=== PATIENT | female | born 1965 | race Caucasian/White ===

== ENCOUNTER 2020-08-06 20:07 | Emergency (ER) | payer OTHER, SELFPAY ==
[2020-08-06 20:18] VITALS: BP 160/90; PULSE 77; PULSE 95; RESP 16; TEMP 36.7; O2SAT 100; O2SAT 95; BMI 26.6
--- NOTE | 2020-08-06 21:02 | CT_ITS ---
EXAMINATION: CT ABDOMEN AND PELVIS WITHOUT CONTRAST CLINICAL INFORMATION: Lower abdominal pain COMPARISON: 11/28/2018 TECHNIQUE: Multidetector volumetric imaging was performed from the superior aspect of the liver through the pubic symphysis. Sagittal and coronal reformatted images were obtained on the technologist's workstation. This CT examination was performed using dose optimization techniques as appropriate, variously including the following: *Automated exposure control *Adjustment of mA and/or kV according to patient size (this includes techniques or standardized protocols for targeted exams where dose is matched to indication/reason for exam; i.e. extremities or head) *Use of iterative reconstruction technique DLP: 592 mGy-cm FINDINGS: LUNG BASES: The visualized lung bases are unremarkable. LIVER, GALLBLADDER, AND BILIARY TREE: The liver is normal in size, shape, and attenuation. No focal hepatic lesion or biliary ductal dilatation is present. The gallbladder is unremarkable with no evidence of radiopaque gallstones, gallbladder wall thickening, or obvious pericholecystic inflammatory changes. PANCREAS: Pancreas is not adequately evaluated. Densely packed structures. Unopacified bowel. No obvious free fluid in the region SPLEEN: Unremarkable. ADRENAL GLANDS: Unremarkable. KIDNEYS AND URETERS: The kidneys are normal in size, shape, and attenuation. No hydronephrosis, hydroureter, or calculi seen. No perinephric stranding. BLADDER: Unremarkable. GASTROINTESTINAL TRACT: The small and large bowel are unremarkable. The appendix is unremarkable. ABDOMINAL WALL: No significant hernia is appreciated. LYMPH NODES: Normal. VASCULAR: Unremarkable. PELVIC VISCERA: Unremarkable. OSSEOUS STRUCTURES: Unremarkable. CT/CT abdomen pelvis wo con IMPRESSION: No convincing evidence for an acute process. Exam is limited from lack of intravenous and oral contrast. The bowel pattern is nonobstructing. There is no free fluid.
--- NOTE | 2020-08-06 21:05 | ED.ABDPAIN ---
HPI - Abdominal Pain General Chief Complaint: Abdominal Pain Stated Complaint: abd pain Time Seen by Provider: 08/06/20 21:02 Source: patient and EMS Mode of arrival: EMS Limitations: no limitations History of Present Illness HPI narrative: 54 years old female came in by EMS, patient was eating at a restaurant after she ate fried clam felt sudden onset of lower severe abdominal pain, described the pain as severe and constant, crampy in nature, diffuse to the whole abdomen, associated with nausea and vomiting, no diarrhea no bowel movement desire, patient was given pain medication by EMS that alleviate the pain, other family member ate from same food with no symptoms. Related Data Allergies Allergy/AdvReac Type Severity Reaction Status Date / Time Penicillins [PCN] Allergy Unknown RASH Unverified 04/01/20 19:40 Sulfa (Sulfonamide Allergy Unknown INVOLUNTARY Unverified 04/01/20 19:40 Antibiotics) SPASMS [SULFA (SULFONAMIDE ANTIBIOTICS)] Review of Systems Review of Systems All other systems are reviewed and are negative Constitutional: Reports as per HPI and Reports no additional constitutional complaints Eyes: Reports as per HPI and Reports no additional eye complaints Reports system reviewed and no additional complaints, except as documented Cardiovascular: Reports as per HPI and Reports no additional cardiovascular complaints Respiratory: Reports as per HPI and Reports no additional respiratory complaints Gastrointestinal: Reports as per HPI and Reports no additional gastrointestinal complaints Genitourinary: Reports no additional female genitourinary complaints Musculoskeletal: Reports no additional musculoskeletal complaints Skin/Breast: Reports system reviewed and no additional complaints, except as docu Psychiatric: Reports no additional psychiatric complaints Endocrine: Reports no additional endocrine complaints Hematologic/Lymphatic: Reports no additional hematologic/lymphatic complaints Allergic/Immunologic: Reports no additional allergic/immunologic complaints Reports system reviewed and no additional complaints, except as documented and Reports Abnormal speech present Physical Exam Vital Signs: Vital Signs: Last Vital Signs Temp 98.0 F 08/06/20 20:18 Pulse 77 08/07/20 00:00 Resp 18 08/07/20 00:00 BP 128/77 08/07/20 00:00 Pulse Ox 98 08/07/20 00:00 Body Mass Index 26.6 Vital signs have been reviewed as normal and appeared to be correct. Blood pressure normal. Heart rate normal. Respiration rate normal. Temperature normal. Oxygen saturation normal. Appearance: Alert. Oriented X3. No acute distress. Head: Normal external exam. Normocephalic. Atraumatic. No Rain signs noted. No raccoon eyes noted Eyes: PERRLA. EOMI. Conjunctiva and sclera normal. Eyelids normal. ENT: EAC normal. TM's Normal. Pharynx normal. Uvula midline. Moist mucous membranes. No trismus noted. No drooling noted. No muffled voice noted. Neck: Normal inspection. Neck supple. FROM. No adenopathy. Thyroid Normal. No meningeal signs. No neck mass noted. CVS: Normal heart rate and rhythm. Heart sound normal. No murmurs noted. Pulses normal throughout. Respiratory: No respiratory distress. Painless inspiration. Breath sounds normal. No wheezes/rales/rhonchi noted. Chest nontender. No accessory muscle usage noted or decreased air movement noted. Abdomen: Soft, tenderness to bilateral lower abdomen more pronounced on the left lower quadrant area, no rebound, no guarding. Bowel sounds normal in all 4 quadrants. No distention noted. No organomegaly noted. No visible injury noted. Back: No CVA tenderness. Full range of motion noted. Skin: Skin warm and dry. Normal skin color. Normal skin turgor. No rashes/lesions/lacerations noted. Extremities: No lower extremity edema. Extremities exhibit normal range of motion. Extremities nontender. Neuro: Oriented X 3. No motor deficit. No sensory deficit. Reflexes normal. MDM - Abdominal Pain MDM Narrative Medical decision making narrative: Assessment and plan. 54-year-old female came in with a sudden onset of lower abdominal pain after eating outside, nausea, and vomiting. Patient emergency department received IV fluids and pain medication and antinausea medication, patient feels better. Labs were unremarkable no leukocytosis. CT of the abdomen pelvis done without contrast but was not significant for acute intra abdominal pathology. Patient was reassessed and re-examined abdomen is soft nontender. Patient decline symptoms for UTI no dysuria, no urinary frequency. Lab Data Attestation: I reviewed the patient's lab results. Result diagrams: 08/06/20 23:42 08/06/20 23:42 Labs: Lab Results 08/06/20 08/06/20 08/06/20 Range/Units 22:28 23:42 23:42 WBC 5.8 (4.8-10.8) X10*3/uL RBC 4.29 (4.20-5.50) X10*6/uL Hgb 13.1 (12.0-16.0) g/dl Hct 39.1 (37-47) % MCV 91.1 (80-98) fL MCH 30.5 (27.0-33.0) pg MCHC 33.5 (31.0-35.0) g/dl RDW 12.4 (11.0-16.0) % Plt Count 254 (160-400) X10*3/uL MPV 9.3 L (9.4-12.3) fL Immature Gran % (Auto) 0.2 (0.0-0.4) % Neut % (Auto) 53.5 (45-73) % Lymph % (Auto) 35.2 (20-40) % [place] % (Auto) 8.5 (2-11) % Eos % (Auto) 1.9 (0-4) % Baso % (Auto) 0.7 (0-2) % Lymph # (Auto) 2.0 (1.2-4.9) X10*3/uL [place] # (Auto) 0.5 (0.1-1.2) X10*3/uL Eos # (Auto) 0.1 (0.0-0.4) X10*3/uL Baso # (Auto) 0.0 (0.0-0.2) X10*3/uL Abs Immat Gran (auto) 0.01 (0.00-0.03) X10*3/uL Absolute Neuts (auto) 3.1 (2.0-8.3) X10*3/uL Absolute Nucleated RBC 0.000 (0.0-0.012) X10*3/uL Nucleated RBC % (auto) 0.0 (0.0-0.2) /100WBC Sodium 142 (135-145) mmol/L Potassium 4.0 (3.3-5.1) mmol/l Chloride 106 (96-108) mmol/L Carbon Dioxide 28 (22-29) mmol/L Anion Gap 12 (12-20) BUN 10 (9-16) mg/dL Creatinine 0.78 (0.5-1.4) mg/dL Estim Creat Clear Calc 89.3 Estimated GFR > 60 Random Glucose 95 (60-115) mg/dL Calcium 8.5 (8.4-10.2) mg/dL Total Bilirubin 0.3 (0.0-1.0) mg/dL Direct Bilirubin < 0.2 (0.0-0.5) mg/dL AST 15 (5-31) U/L ALT 9 (0-31) U/L Alkaline Phosphatase 68 (39-117) U/L Total Protein 6.5 (6.5-8.0) g/dL Albumin 4.2 (3.5-5.0) g/dL Lipase 56 (8-78) U/L Urine Color YELLOW Urine Appearance CLEAR Urine pH 5.5 (5.0-8.0) Ur Specific [place] 1.010 (1.005-1.025) Urine Protein NEG (NEG-TRACE) MG/DL Urine Glucose (UA) NEG (NEG) MG/DL Urine Ketones NEG (NEG) MG/DL Urine Blood NEG (NEG) Urine Nitrite POS H (NEG) Ur Leukocyte Esterase TRACE H (NEG) Urine RBC 0 (0) /HPF Urine WBC 0-2 (0-4) /HPF Ur Squamous Epith Cells 1+ /LPF Urine Bacteria 4+ /LPF Urine Test NEGATIVE (NEGATIVE) COVID-19 (MISSY) (Negative) COVID-19 Clin Com 08/07/20 Range/Units 01:04 WBC (4.8-10.8) X10*3/uL RBC (4.20-5.50) X10*6/uL Hgb (12.0-16.0) g/dl Hct (37-47) % MCV (80-98) fL MCH (27.0-33.0) pg MCHC (31.0-35.0) g/dl RDW (11.0-16.0) % Plt Count (160-400) X10*3/uL MPV (9.4-12.3) fL Immature Gran % (Auto) (0.0-0.4) % Neut % (Auto) (45-73) % Lymph % (Auto) (20-40) % [place] % (Auto) (2-11) % Eos % (Auto) (0-4) % Baso % (Auto) (0-2) % Lymph # (Auto) (1.2-4.9) X10*3/uL [place] # (Auto) (0.1-1.2) X10*3/uL Eos # (Auto) (0.0-0.4) X10*3/uL Baso # (Auto) (0.0-0.2) X10*3/uL Abs Immat Gran (auto) (0.00-0.03) X10*3/uL Absolute Neuts (auto) (2.0-8.3) X10*3/uL Absolute Nucleated RBC (0.0-0.012) X10*3/uL Nucleated RBC % (auto) (0.0-0.2) /100WBC Sodium (135-145) mmol/L Potassium (3.3-5.1) mmol/l Chloride (96-108) mmol/L Carbon Dioxide (22-29) mmol/L Anion Gap (12-20) BUN (9-16) mg/dL Creatinine (0.5-1.4) mg/dL Estim Creat Clear Calc Estimated GFR Random Glucose (60-115) mg/dL Calcium (8.4-10.2) mg/dL Total Bilirubin (0.0-1.0) mg/dL Direct Bilirubin (0.0-0.5) mg/dL AST (5-31) U/L ALT (0-31) U/L Alkaline Phosphatase (39-117) U/L Total Protein (6.5-8.0) g/dL Albumin (3.5-5.0) g/dL Lipase (8-78) U/L Urine Color Urine Appearance Urine pH (5.0-8.0) Ur Specific [place] (1.005-1.025) Urine Protein (NEG-TRACE) MG/DL Urine Glucose (UA) (NEG) MG/DL Urine Ketones (NEG) MG/DL Urine Blood (NEG) Urine Nitrite (NEG) Ur Leukocyte Esterase (NEG) Urine RBC (0) /HPF Urine WBC (0-4) /HPF Ur Squamous Epith Cells /LPF Urine Bacteria /LPF Urine Test (NEGATIVE) COVID-19 (MISSY) Negative (Negative) COVID-19 Clin Com See Note Imaging Data CT scan - abdomen: Radiologist's impression: No convincing evidence for an acute process. Exam is limited from lack of intravenous and oral contrast. The bowel pattern is nonobstructing. There is no free fluid. Discharge Plan Discharge Clinical Impression: Abdominal pain Qualifiers: Abdominal location: generalized Qualified Code(s): R10.84 - Generalized abdominal pain Patient Disposition: Home, Self-Care Instructions: Abdominal Pain (ED) Additional Instructions: Seek immediate medical attention faint is worsening or new symptoms develop like nausea, vomiting, or fever. Referrals: Physician,None [Primary Care Provider] - 2 days Interventions: ED Discharge Assessment Last Done: 08/07/20 00:58 Discharge Date/Time: 08/07/20 01:07 [facility], [facility] Social History Social History Smoking Status: Never smoker Use of substances other than those prescribed or required for medical reasons: No Advance Directives: No Advance Directives Information Provided: Yes
[2020-08-06] MEDS: 0.9 % Sodium Chloride 1,000 ML 999 ML IVCONT (22:10)
[2020-08-06] MEDS: Morphine Sulfate 2 MG/ML CARTRIDGE 1 MG IVPUSH (22:10)
[2020-08-06] MEDS: ondansetron HCL 4 MG/2 ML VIAL IVPUSH (22:11)
[2020-08-06 22:37] VITALS: BP 131/76; PULSE 70; RESP 16; O2SAT 100
[2020-08-06 22:37] LABS: Glucose Urine UA NEG (NEG); Leukocyte Esterase Urine TRACE (NEG); Nitrite Urine POS (NEG); PH 5.5 (5.0-8.0); UACC Culture Trigger YES; Urine Blood NEG (NEG); Urine Ketones NEG (NEG); Urine Protein NEG (NEG-TRACE)
[2020-08-06 22:38] LABS: Appearance Urine CLEAR; Color Urine YELLOW
[2020-08-06 22:40] LABS: UPreg QC Valid YES; Urine Pregnancy NEGATIVE (NEGATIVE)
[2020-08-06 22:49] LABS: RBC Urine 0 /HPF (0); Squamous Epithelial Cell Urine 1+ /LPF; WBC Urine 0-2 /HPF (0-4)
[2020-08-06 22:50] LABS: Bacteria Urine 4+ /LPF
--- NOTE | 2020-08-06 22:53 | PC.NURSE ---
pt refusing labs at this time, pt wants more ivf to infuse.
[2020-08-06 22:56] VITALS: BP 129/76; PULSE 77; RESP 18; O2SAT 100
--- NOTE | 2020-08-06 23:41 | PC.NURSE ---
lab is present to draw the pt blood.
[2020-08-06 23:53] LABS: MANUAL DIFF FLAG NO
[2020-08-06 23:56] LABS: Basophils Percent Auto 0.7 % (0-2); Eosinophils Absolute Auto 0.1 X10*3/uL (0.0-0.4); Eosinophils Percent Auto 1.9 % (0-4); Hematocrit 39.1 % (37-47); Hemoglobin 13.1 g/dl (12.0-16.0); Imm Gran Abs Auto 0.01 X10*3/uL (0.00-0.03); Imm Gran Pct Auto 0.2 % (0.0-0.4); Lymphocytes Percent Auto 35.2 % (20-40); Mean Corpuscular HGB Conc 33.5 g/dl (31.0-35.0); Mean Corpuscular Hemoglobin 30.5 pg (27.0-33.0); Mean Corpuscular Volume 91.1 fL (80-98); Mean Platelet Volume 9.3 fL (9.4-12.3); Monocytes Absolute Auto 0.5 X10*3/uL (0.1-1.2); Monocytes Percent Auto 8.5 % (2-11); Neutrophils Absolute Auto 3.1 X10*3/uL (2.0-8.3); Neutrophils Percent Auto 53.5 % (45-73); Platelet Count 254 X10*3/uL (160-400); Red Blood Count 4.29 X10*6/uL (4.20-5.50); Red Cell Distribution Width 12.4 % (11.0-16.0); White Blood Count 5.8 X10*3/uL (4.8-10.8)
[2020-08-07] VITALS: BP 128/77; PULSE 77; RESP 18; O2SAT 98
[2020-08-07 00:40] LABS: Alanine Aminotransferase 9 U/L (0-31); Albumin Level 4.2 g/dL (3.5-5.0); Alkaline Phosphatase 68 U/L (39-117); Anion Gap 12 (12-20); Aspartate Amino Transferase 15 U/L (5-31); Bilirubin Direct < 0.2 mg/dL (0.0-0.5); Bilirubin Total 0.3 mg/dL (0.0-1.0); Blood Urea Nitrogen 10 mg/dL (9-16); Calcium 8.5 mg/dL (8.4-10.2); Carbon Dioxide 28 mmol/L (22-29); Chloride 106 mmol/L (96-108); Creatinine Clr Calc Pharmacy 89.3; Estimated Glomerular Filt Rate > 60; Glucose Random 95 mg/dL (60-115); Lipase 56 U/L (8-78); Sodium 142 mmol/L (135-145); Total Protein 6.5 g/dL (6.5-8.0)
[2020-08-07 01:23] LABS: COVID-19 Test Negative (Negative); IDNOW Serial# 9DD0AD1C
== END 2020-08-07 01:07 | disposition home or self-care (01) ==
PROVIDERS: Emergency Provider Emergency Medicine
DX: N39.0 Urinary tract infection, site not specified (principal); R10.84 Generalized abdominal pain; Z20.822 Contact with and (suspected) exposure to COVID-19
CPT/HCPCS: 36415; 74176; 80048; 80076; 81001; 81003; 81025; 83690; 85025; 87086; 87088; 87186; 87635; 96361; 96374; 96375; 99284; J2270; J2405

== ENCOUNTER 2022-01-24 14:33 | Outpatient (REF) | payer OTHER, SELFPAY ==
--- NOTE | ~2022-01-24 | US_ITS ---
EXAMINATION: US SCREENING ULTRASOUND BREAST, BILATERAL CLINICAL INFORMATION: 56-year-old declines mammography. Request bilateral breast ultrasound. COMPARISON: None. TECHNIQUE: Ultrasound is performed using grayscale imaging and color Doppler. Imaging is performed to include the four quadrants and retroareolar region. Both breasts are imaged. FINDINGS: Right breast: There is no suspicious finding by ultrasound. There is no cystic or solid mass or focal architectural abnormality. Left breast: There is no suspicious finding by ultrasound. There is no cystic or solid mass or focal architectural abnormality. US/US breast LT complete IMPRESSION: No suspicious findings on bilateral breast ultrasound. ASSESSMENT: BI-RADS 1: Negative RECOMMENDATION: 1. Routine annual mammography screening. 2. Additional adjunct breast MRI may be considered depending on clinical risk factors. This patient's information was entered into a reminder system with a target due date for their next mammogram.
--- NOTE | ~2022-01-24 | US_ITS ---
EXAMINATION: US SCREENING ULTRASOUND BREAST, BILATERAL CLINICAL INFORMATION: 56-year-old declines mammography. Request bilateral breast ultrasound. COMPARISON: None. TECHNIQUE: Ultrasound is performed using grayscale imaging and color Doppler. Imaging is performed to include the four quadrants and retroareolar region. Both breasts are imaged. FINDINGS: Right breast: There is no suspicious finding by ultrasound. There is no cystic or solid mass or focal architectural abnormality. Left breast: There is no suspicious finding by ultrasound. There is no cystic or solid mass or focal architectural abnormality. US/US breast RT complete IMPRESSION: No suspicious findings on bilateral breast ultrasound. ASSESSMENT: BI-RADS 1: Negative RECOMMENDATION: 1. Routine annual mammography screening. 2. Additional adjunct breast MRI may be considered depending on clinical risk factors. This patient's information was entered into a reminder system with a target due date for their next mammogram.
== END 2022-01-24 14:34 | disposition home or self-care (01) ==
LOC: HO.MAMMO 14:33
PROVIDERS: Visit Provider Obstetrics & Gynecology Reproductive Endocrinology
DX: Z12.39 Encounter for other screening for malignant neoplasm of breast (principal); N95.2 Postmenopausal atrophic vaginitis
CPT/HCPCS: 76641

== ENCOUNTER 2023-07-13 13:06 | Outpatient (REF) | payer BC, SELFPAY | END 2023-07-13 13:07 | disposition home or self-care (01) | LOC: HO.MAMMO 13:06 | PROVIDERS: PCP Nurse Practitioner Family; Visit Provider Nurse Practitioner Family | DX: Z12.31 Encounter for screening mammogram for malignant neoplasm of breast (principal) | CPT/HCPCS: 76641 ==

== ENCOUNTER → 2023-07-13 13:30 | Outpatient (BNV) | payer BC, SELFPAY | PROVIDERS: PCP Nurse Practitioner Family; Visit Provider Radiology Diagnostic Radiology | DX: Z12.31 Encounter for screening mammogram for malignant neoplasm of breast (principal) | CPT/HCPCS: 76641 ==

== ENCOUNTER → 2025-02-24 11:05 | Outpatient (BNVA) | payer OTHER, SELFPAY | PROVIDERS: Visit Provider Physician Assistant Medical | DX: S93.401A Sprain of unspecified ligament of right ankle, initial encounter (principal); S50.02XA Contusion of left elbow, initial encounter; S80.02XA Contusion of left knee, initial encounter; W18.09XA Striking against other object with subsequent fall, initial encounter | CPT/HCPCS: 73610; 99203 ==

== ENCOUNTER → 2025-02-26 11:23 | Outpatient (BNVA) | payer OTHER, SELFPAY | PROVIDERS: Visit Provider Physician Assistant Medical | DX: S93.401A Sprain of unspecified ligament of right ankle, initial encounter (principal); W18.09XA Striking against other object with subsequent fall, initial encounter | CPT/HCPCS: 99213 ==

== ENCOUNTER → 2025-03-12 15:16 | Outpatient (BNVA) | payer OTHER, SELFPAY | PROVIDERS: Visit Provider Physician Assistant Medical | DX: S93.401A Sprain of unspecified ligament of right ankle, initial encounter (principal); S86.011A Strain of right Achilles tendon, initial encounter; W18.09XA Striking against other object with subsequent fall, initial encounter | CPT/HCPCS: 99213 ==

== ENCOUNTER 2025-03-22 14:19 | Outpatient (REF) | payer OTHER, SELFPAY ==
--- OUTSIDE RECORDS SUMMARY | 2024-04-24 09:20 | XMS_ITS ---
Author Organization [employer] [facility] Address [address] [place] [address] Care Team Providers Care Director Of Event Marketing Name Role Phone Donna Stuart Unavailable [phone] REASON FOR VISIT ANNUAL W/MENOPAUSE ISSUES Encounters Encounter Location Date Provider Diagnosis [facility] [employer] [facility] [address] [place] [address] 04/24/2024 Donna Stuart Plan Of Treatment Next Appt Details Provider Name:Donna borges, 03/19/2026 03:00:00 PM, [address], [address], [place], [address], Progress Notes * RETA ESQUIVELOB:1965 ( 59 yo F)Acc No.[id number]:04/24/2024 Progress Note Patient: LIDIA SMITH Appointment Provider: Johnathan Stuart M.D. :1965 A ge:58 Y S ex:Female Date:04/24/2024 Address:[address] [place] [address] [address] [facility] [id number] Subjective: * Chief Complaints: * 1 . ANNUAL W/MENOPAUSE ISSUES. * Medical History: Objective: * Vitals: Assessment: Plan: * Treatment: * Images: Billing Information: * Visit Code: * Procedure Codes: * Electronic signature of Deepa Stuart MD on 03/22/2025 at 02:23 PM EDT Sign off status: Pending * Appointment Provider: Johnathan Stuart M.D. Date: 1 Generated for Janene moncada/Santos/Debbyitting on: 0 03/22/2025 02:23 PM EDT
--- NOTE | ~2025-03-22 | MR_ITS ---
CLINICAL HISTORY: Achilles tendon injury, rt lateral sprain MR right ankle without gadolinium Comparison: None provided Findings: Medial talar neck large area of marrow edema. Additional smaller area of marrow edema at the inferolateral talus, and a tiny focus at the talar dome. Mild marrow edema at the medial malleolus anteriorly. Trace tibiotalar joint effusion. Sinus tarsi intact. Anterior talofibular ligament is not seen. Calcaneofibular ligament is thin although appears intact. Posterior talofibular, and deltoid ligaments are intact. Spring ligament intact. Partial tear of the peroneus brevis tendon. Flexor, extensor, and peroneus longus tendons appear intact. Mild Achilles enthesopathy. Normal Achilles tendon otherwise. Plantar fascia is intact. IMPRESSION: 1. Mild achilles enthesopathy, however no tendon injury. 2. Multifocal areas of marrow edema at the ankle. Contusions of the medial malleolus, talar neck, and inferolateral talus favored. 3. Torn anterior talofibular ligament. Thin calcaneofibular ligament could be due to a prior injury. 4. Partial tear peroneus brevis tendon. This document has been electronically signed by: Ac Landrum MD on 03/24/2025 03:08:04
--- OUTSIDE RECORDS SUMMARY | 2025-03-22 14:23 | XMS_ITS | Patient Health Record ---
Author Organization [facility] Address [address] [place] [address] Care Team Providers Care Equipment Maintenance Superintendent Name Role Phone Donna Stuart Unavailable [phone] Allergies Allergen (clinical drug ingredient) Drug/Non Drug Allergy documented on EMR Reaction Allergy Type Onset Date Status Soy (uncoded) Unknown Allergy Active codeine Codeine Stomach Upset Drug Allergy Act maría Penicillin Rash/Windpipe Drug Allergy Ac tive Substance with sulfonamide structure and antibacterial mechanism of action (substance) Sulfa Antibiotics Faint/Flushing Drug Allergy Active Results Component Value Reference Range Notes Urinalysis Reviewed date:03/11/2025 03:31:15 PM Interpretation: Performing Lab: Notes/Report: PH 7.0 PROTEIN Neg GLUCOSE Neg BLOOD Neg Reason For Referral No Information Medications Medication SIG (Take, Route, Frequency, Duration) Notes Start Date End Date Status Vitamin D3 125 MCG (5000 UT) 1 capsule Orally Once a day Active Co Q 10 Active Estring 7.5 MCG/24HR 1 ring Vaginal EVER Y 3 MONTHS; Duration: 90 days 03/11/2025 Active Social History Tobacco Use: Social History Observation Description Date Details (start date - stop date) Former Smoker NA - NA Sexual History Question Answer Notes Had sex in the past 12 months (vaginal, oral, or anal)? Yes with Men only Prevention strategies discussed: Other AUDIT-C (Standard) Question Answer Notes Did you have a drink containing alcohol in the p ast year? No Points 0 Interpretation Negative Tobacco Control (Standard) Question Answer Notes Tobacco use: Former smoker How long has it been since you last smoked? Grea ter than 10 years Problems Problem Type SNOMED Code ICD Code Onset Dates Problem Status W/U Status Risk Notes Problem Postmenopausal atrophic vaginitis (79689441) Postmenopausal atrophic vaginitis (N95.2) Active confirmed Problem Attention deficit hyperactivity disorder (889912255) Attention-deficit hyperactivity disorder, other type (F90.8) Active confirmed Problem Chronic intractable migraine without aura (556284552139815) Chronic migraine without aura, intractable, without status migrainosus (G43.719) Active confirmed Problem Chronic interstitial cystitis (673150480) Interstitial cystitis (chronic) without hematuria (N30.10) Active confirmed Problem Menopause (007614955) Menopausal and female climacteric states (N95.1) Active confirmed Problem Dyspareunia (15951084) Other specified dyspareunia (N94.19) Active confirmed Vital Signs Temperature 97.9 degrees Fahrenheit 03/11/2025 Blood pressure diastolic 88 mm Hg 03/11/2025 Height 65.5 in 03/11/2025 Blood pressure systolic 130 mm Hg 03/11/2025 Weight 186 lbs 03/11/2025 BMI 30.48 kg/m2 03/11/2025 Encounters Encounter Location Date Provider Diagnosis [address] [address] 03/11/2025 Donna Stuart Encounter for gynecological examination (general) (routine) without abnormal findings Z01.419 ; Encounter for screening mammogram for malignant neoplasm of breast Z12.31 and Postmenopausal atrophic vaginitis N95.2 Assessments Encounter Date Diagnosis (ICD Code) Assessment Notes Treatment Notes Treatment Clinical Notes Section Notes 03/11/2025 Encounter for gynecological examination (general) (routine) without abnormal findings (ICD-10 - Z01.419) NO PAP TEST, DUE IN 2026. ADEQUATE CALCIUM AND VIT D. WEIGHT BEARING EXERCISES. 03/11/2025 Encounter for screening mammogram for malignant neoplasm of breast (ICD-10 - Z12.31) IMPORTANCE OF MAMMOGRAMS WAS EMPHASIZED SPECIALLY WITH 1 IN 8 INCIDENCE OF BREAST CA IN THE [place] ADVISED PAT TO SCHEDULE MAMMOGRAM AT [facility], [employer] APPT. 03/11/2025 Postmenopausal atrophic vaginitis (ICD-10 - N95.2) DISCUSSED FINDINGS, DX AND TX OPTIONS. BENEFITS IF INTRAVAGINAL ESTROGEN WAS DISCUSSED WELL ITS RISKS. PAT AGREED TO TRY ESTRING. DISCUSSED THIS DEVISE AT LENGTH. IF SHE FINDS THIS TOO EXPENSIVE, CALL BACK AND WILL PRESCRIBE YUVAFEM. YUVAFEM WAS ALSO DISCUSSED. Plan Of Treatment Pending Test Test Name Order Date MM Digital Mammo Screening 03/07/2024 MM Digital Mammo Screening 03/11/2025 Next Appt Details Provider Name:Donna borges, 03/19/2026 03:00:00 PM, [address], [address], [place], [address], Insurance Providers Payer Name Payer Address Payer Phone Subscriber Number Group Number Insured Name Patient Relationship to Insured Coverage Start Date Coverage End Date [employer] [place] [address] [place] [address] [id number] LIDIA ESQUIVEL Self - patient is the insured Medical (General) History Medical History History ICD Code Attention-deficit hyperactivity disorder , other type F90.8 Other specified dyspareunia N94.19 Chronic migraine without aura, intractab le, without status migrainosus G43.719 Menopausal and female climacteric states N95.1 Interstitial cystitis (chronic) without hematuria N30.10 Postmenopausal atrophic vaginitis N95.2 Surgical History Surgery Date(Month/Year) Inguinal Hernia Eye Surgery Ovarian Cystectomy Colonoscopy Foot Surgery Salpinoopherorectomy Tonsillectomy Hospitalization History Reason Date(Month/Year) See Surgical Hx
--- OUTSIDE RECORDS SUMMARY | 2025-03-22 14:23 | XMS_ITS | Clinical Summary ---
Author Organization [facility] Address [address] [address] Phone Care Team Providers Care E Commerce Merchandising Coordinator Name Role Phone Yari Ryan MD Primary Care Provider [phone] Yari Ryan MD Unavailable Allergies Active Allergy Reactions Criticality Noted Date Comments Codeine 10/21/2021 Monosodium Glutamate 04/28/2022 Other Low 07/16/2009 Penicillins Hives 06/21/2018 Soy 06/24/2018 migraine Sulfa (Sulfonamide Antibiotics) Dizziness 06/21/2018 Nausea and dizziness Medications ascorbate calcium (VITAMIN C ORAL) Take 1 tablet by mouth daily. Active IODINE, KELP, ORAL Take 1 capsule by mouth daily. Active coenzyme Q10 100 mg capsule Take 100 mg by mouth daily. Active ibuprofen (ADVIL,MOTRIN) 200 MG tablet Take 3 tablets (600 mg total) by mouth every 6 (six) hours as needed for pain (specific location in comments). 8 Active atomoxetine (STRATTERA) 40 MG capsuleIndications :Attention deficit hyperactivity disorder (ADHD), unspecified ADHD type Take 1 capsule (40 mg total) by mouth daily. 30 capsule 5 5 Active Active Problems Problem Noted Date Diagnosed Date Postmenopausal symptoms 01/12/2023 Assessment & Plan (12/19/2023 10:22 AM EDT): Referral placed to [facility] as patient would like to establish with new guard entrance registrar. Discussed risks of unopposed estrogen and encourage resuming progesterone. Refill sent to pharmacy to bridge until establishing with new PAYROLL TECHNICIAN as she notes that she is currently without prescription. Assessment & Plan (01/12/2023 3:04 PM EDT): Followed by Dr. Barreto, Endo/Recruitment Specialist Vitamin D deficiency 07/21/2022 Assessment & Plan (07/21/2022 12:20 PM EST): Unclear if stable, check lab Bilateral hand pain 02/24/2022 Assessment & Plan (07/21/2022 12:19 PM EST): Likely OA Had seen OT Request PT referral - order faxed Also recommend Thumb Spica Splint Chronic migraine without aur a without status migrainosus, not intractable 11/13/2021 Assessment & Plan (07/21/2022 12:19 PM EST): usu ppt by [facility] per patient She's very vigilant regarding avoiding it educ to stay hydrated Assessment & Plan (11/13/2021 8:08 PM EDT): Controlled with dietary trigger avoidance and as needed ibuprofen for acute abortive relief. Former smoker 11/13/2021 Cervical cancer screening 11/13/2021 Assessment & Plan (02/24/2022 2:24 PM EDT): Follow up with PAYROLL TECHNICIAN Assessment & Plan (11/13/2021 8:12 PM EDT): Referred back to her guard entrance registrar for further discussion of dyspareunia and cervical cancer screening Colon cancer screening 11/13/2021 Assessment & Plan (11/13/2021 8:12 PM EDT): Referral for screening colonoscopy COVID-19 vaccine series declined 11/13/2021 Immunization declined 11/13/2021 Interstitial cystitis 11/13/2021 Assessment & Plan (07/21/2022 12:20 PM EST): Possible diagnosis She takes [place]'s Wort to help symptoms Assessment & Plan (11/13/2021 8:29 PM EDT): Currently stable Dyspareunia in female 11/13/2021 History of melanoma excision 11/13/2021 Overview (11/13/2021): Left leg Assessment & Plan (12/19/2023 10:21 AM EDT): Referral placed to dermatology for annual skin checks. No concerning lesions of brief skin check today Family history of ovarian cancer 11/13/2021 Attention deficit hyperactivity disorder (ADHD) 10/21/2021 Assessment & Plan (07/21/2024 4:14 PM EST): Mutually agreed that she will continue Strattera 40 mg versus previously discussing taper up to 80 mg as she has noted improvement in current ADHD symptoms including the improved ability to complete tasks. She was encouraged to reach out to the office with any concerns in the interim. Assessment & Plan (06/30/2024 10:38 AM EST): Treatment options for ADHD discussed with patient including stimulant versus nonstimulant formulations. She is interested in initiation of nonstimulant. Wellbutrin versus atomoxetine discussed and patient would like to proceed with the latter. Potential risks, benefits, side effects discussed with patient. Reviewed monitoring of anxiety symptoms. Mutually agreed to follow-up within 4 weeks for treatment evaluation Orders: atomoxetine (STRATTERA) 40 MG capsule; Take 1 capsule (40 mg total) by mouth daily for 7 days, THEN 2 capsules (80 mg total) daily for 28 days. Assessment & Plan (12/19/2023 10:24 AM EDT): Controlled substance agreement completed today in office. Medications last refilled in September as she has not been taking medication consistently since being unemployed. She will resume more consistent use now that she is studying and preparing for additional licensure exams. Refill sent to pharmacy. Assessment & Plan (01/12/2023 3:03 PM EDT): Stable on meds Assessment & Plan (07/21/2022 12:18 PM EST): Currently stable on med Educated to monitor for any side effects, e.g. BP, etc. Assessment & Plan (11/13/2021 8:28 PM EDT): on Aderrall 10mg BID, does not follow with psychiatrist or therapist. Takes Moffat Wort for mood. Denies depression or anxiety. Discussed evaluation by Behavioral Health. Dermoid cyst of left ovary 06/21/2018 Overview (11/13/2021): S/p lap. Left salpingooopherectomy in 2018, Dr. Escobedo Assessment & Plan (11/13/2021 8:39 PM EDT): S/p lap. Left salpingooopherectomy in 2018, Dr. Escobedo Assessment & Plan (06/21/2018 10:15 AM EST): Requested [facility] from [facility] and patient requests surgical treatment with USO and bilateral salpingectomy. OK with BSO If inidcated Resolved Problems Problem Noted Date Diagnosed Date Resolved Date Ovarian cyst 12/06/2018 01/28/2019 Pyelonephritis 12/06/2018 01/28/2019 Immunizations Immunization Administration Dates Next Due Hepatitis A, Adult 04/10/2019 Family History Medical History Relation Comments Alzheimer's disease Father Atrial fibrillation Father Dementia Father Heart failure Father Hypertension Father Suicide Maternal Grandfather Ovarian cancer Maternal Grandmother Alzheimer's disease Mother Atrial fibrillation Mother Dementia Mother Rheumatoid arthritis Mother Emphysema Paternal Grandfather Melanoma Paternal Grandmother Arthritis Sister 1 Rheumatoid arthritis Sister 1 Relation Status Comments Father Maternal Grandfather Maternal Grandmother Mother Paternal Grandfather Paternal Grandmother Sister 1 Alive Sister 2 Alive Sister 3 Alive Social History Tobacco Use Types Packs/Day Years Used Date Smoking Tobacco: Former Cigarettes 1 12 983 - 1994 Smokeless Tobacco: Never Tobacco Cessation:Counseling Given: Not Answered Comments:Former smoker, Quit 28 years ago. x11-12 years, 0.75-1 ppd. Alcohol Use Standard Drinks/Week Comments Not Currently 0 (1 standard drink = 0.6 oz pur e alcohol) Quit 1992 Child or Family Care Answer Date Record ed Do you have problems with on e of the following making it difficult for you to work, study, or receive health care? No 12/18/2023 Education Answer Date Recorded Are you interested in help w ith more adult education (for example, completing high school, GED, job training, learning the [place] language, technical skills, or developing parenting skills)? Yes 12/18/2023 Are you concerned about learning? Not on file 12/18/2023 Yes 12/18/2023 No 12/18/2023 Food Answer Date Recorded Within the past 6 months we worried whether our food would run out before we got money to buy more. Never True 12/18/2023 Within the past 6 months the food we bought just didn't last and we didn't have enough money to get more. Never True Residential Stability Answer Date Recor ded What is your housing situation today? I have glen sing 12/18/2023 How many times have you move d in the past 12 months? Zero (I did not move) 12/18/2023 Paying for Meds Answer Date Recorded Do you have trouble paying for medicines? No 12/18/2023 Paying Utility Bills Answer Date Record ed Do you have trouble paying your heating or elect ricity bill? No 12/18/2023 Transportation Answer Date Recorded Has the lack of transportati on kept you from medical appointments or from getting medications? No 12/18/2023 Unemployment Answer Date Recorded Are you currently unemployed or working on a part-time or temporary basis, and looking for work? No 10/21/2021 Digital Access Answer Date Recorded No 12/18/2023 Yes 12/18/2023 Do you have reliable internet access at home? Ye s 12/18/2023 Do you have a device (e.g., phone, tablet, computer) with a working camera? Yes 12/18/2023 Intimate Partner Violence Answer Date R ecorded Denied Basic Needs Not on file 06/26/2024 In the past 12 months have y ou been in a relationship with a person who hurts, threatens, or tries to control you? No 06/26/2024 Worried food would run out Not on file 06/26 In the past 12 months have y ou been in a relationship with a person who hurts, threatens, or tries to control you? No 06/26/2024 Comments No Sex and Gender Information Value Date Recorded Sex Assigned at Female 11/22/2021 2:43 PM EDT Legal Sex Female 2:16 PM EST Gender Identity Female 11/22/2021 2:43 PM EDT Sexual Orientation Straight 11/22/2021 2: 43 PM EDT Last Filed Vital Signs Vital Sign Reading Time Taken Comments Blood Pressure 124/80 06/26/2024 2:26 PM EST Pulse 70 06/26/2024 2:26 PM EST Temperature 36.2 C (97.2 F) 07/04/2023 3:05 PM EST Respiratory Rate 16 05/01/2022 12:1 1 PM EDT Oxygen Saturation 98% 06/26/2024 2:26 PM EST Inhaled Oxygen Concentration - - Weight 77.9 kg (171 lb 12.8 oz) 06/26/2024 2:26 PM EST Height 166.3 cm (5' 5.47 ) 12/18/2023 1 2:58 PM EDT Body Mass Index 28.18 12/18/2023 12:58 PM EDT Plan of Treatment Health Maintenance Due Date Last Done Comments Adult Td,Tdap Booster 1965 COLOGUARD 2011 FIT TEST 2011 FOBT 2011 SIGMOIDOSCOPY 2011 VIRTUAL COLONOSCOPY 2011 PNEUMOCOCCAL VACCINES (50+ years) (1 of 1 - PCV) 2016 ZOSTER VACCINES (1 of 2) 2016 PAP SMEAR 11/14/2024 11/14/2021, 01/28/2019, 01/28/2019 INFLUENZA VACCINE (#1) 2025 COVID-19 VACCINE (1 - 2023-2 5 season) 2025 DEPRESSION SCREENING 06/26/2025 06/26/2024 MAMMOGRAM 06/26/2026 06/26/2024 SCREENING FOR DIABETES 07/04/2026 07/04/2023 LIPID PANEL 07/04/2028 07/04/2023, 10/21/2021 COLONOSCOPY 05/01/2032 05/01/2022 COLORECTAL CANCER SCREENING 05/01/2032 HEPATITIS A VACCINES Aged Out 04/10/2019 No long er eligible based on patient's age to complete this topic HEPATITIS C SCREENING Completed 10/21/2021 HIV ONE-TIME SCREENING (18-6 5 YEARS) Completed 10/21/2021 SMOKING STATUS SCREENING (On ce After 26 Yrs) Completed 06/26/2024 HIB VACCINES Aged Out No longer eligi ble based on patient's age to complete this topic MENINGOCOCCAL VACCINES (ACWY) Aged Out No longer eligible based on patient's age to complete this topic MENINGOCOCCAL VACCINES (B) Aged Out N o longer eligible based on patient's age to complete this topic Medical Devices Not on file Procedures Procedure Name Priority Date/Time Associated Diagnosis Comments BI MAMMOGRAM SCREENING (BILATERAL) Routine 06/26/2024 3:05 PM EST Screening mammogram for breast cancer LIPID PANEL Routine 07/04/2023 4:02 PM EST Routine general medical examination at a health care facility ENDOSCOPY, COLON 05/01/2022 11:2 9 AM EDT PAP TEST Routine 11/14/2021 12:00 AM EDT HEPATITIS C ANTIBODY, QUALITATIVE Routine 10/21/2021 2:30 PM EDT Need for hepatitis C screening test from Last 3 Months or Most Recently Relevant to Health Maintenance Results * (ABNORMAL) Lipid panel (07/04/2023 4:02 PM EST) HDL 89 mg/dL [facility] Comment: Interpretation <40 mg/dL: Low HDL cholesterol (major risk factor for CHD) Greater than or equal to 60 mg/dL: High HDL cholesterol ( negative risk factor for CHD) HDL - cholesterol is affected by a number of factors, e.g. smoking, excerise, hormones, sex and age. CHOLESTEROL 208 0 - 240 mg/dL [facility] TRIGLYCERIDES 75 30 - 160 mg/dL [facility] LDL 104 50 - 129 mg/dL [facility] Comment: LDL levels in terms of risk for coronary heart disease: <100 mg/dL: Optimal 100-129 mg/dL: Near or above optimal 130-159 mg/dL: Borderline high 160-189 mg/dL: High >190 mg/dL: Very High CARDIAC RISK RATIO 2.3(L) 3.3 - 4.4 C [facility] Blood 07/04/2023 4:02 PM EST 07/04/2023 4:08 PM EST us Mila Huerta NP LAB BLOOD ORDERABLES Final Resu lt [address] [address] * ENDOSCOPY, COLON (05/01/2022 11:29 AM EDT) Narrative Transcriptions Lew Graves MD - 05/01/2022 11:29 AM EDT Patient Name: Arielle Vail Attending MD:: LEW GRAVES MD, Procedure Date: 05/01/2022 11:29AM Date of : 1965 Age: 56 Admit Type: Outpatient Gender: Female Room: [place] [address] Referring MD: Tina Blum Exam Type: Colonoscopy Indications: Screening for colorectal malignant neoplasm Medications: Monitored Anesthesia Care Procedure: Informed consent was obtained from the patientafter discussion of the indications, limitations, alternatives, benefits, and risks of the procedure. Risks specifically discussed include but are not limited to medication reactions, missed lesions, bleeding, perforation, or the need for emergent surgery. Throughout the procedure, the patient's blood pressure, pulse, end-tidal CO2, and oxygensaturations were monitored continuously. The Olympus pediatric variable colonoscopePCF-[id number] #5 was introduced through the anus and advanced tothe cecum, identified by appendiceal orifice andileocecal valve. The colonoscopy was performed without difficulty. The patient tolerated the procedurewell. The quality of the bowel preparation was excellent. The quality of the bowel preparation was evaluated using the BBPS ([place] Bowel Preparation Scale)with scores of: Right Colon = 3, Transverse Colon = 3and Left Colon = 3 (entire mucosa seen well with no residual staining, small fragments of stool oropaque liquid). The total BBPS score equals 9. Anatomical landmarks were photographed. Complications: No immediate complications. Estimated blood loss:None. Findings: The perianal and digital rectal examinations were normal. Internal hemorrhoids were found duringretroflexion. The hemorrhoids were mild. The exam was otherwise normal throughout theexamined colon. Impression: - Internal hemorrhoids. - No specimens collected. Recommendation: - Discharge patient to home. - Repeat colonoscopy in 10 years for screening purposes. LEW GRAVES MD, 05/01/2022 11:57:14 AM This report has been signed electronically. Number of Addenda: 0 Note Initiated On: 05/01/2022 11:29 AM Procedure Code(s): --- Professional --- 22885, Colonoscopy, flexible; diagnostic, including collection of specimen(s) by brushing or washing, when performed (separateprocedure) --- Technical --- 77992, Colonoscopy, flexible; diagnostic, including collection of specimen(s) by brushing or washing, when performed (separateprocedure) Diagnosis Code(s): --- Professional --- Z12.11, Encounter for screening for malignantneoplasm of colon K64.8, Other hemorrhoids --- Technical --- Z12.11, Encounter for screening for malignantneoplasm of colon K64.8, Other hemorrhoids CPT copyright 2020 [employer]. All rights reserved. The codes documented in this report are preliminary and upon rivet machine operator reviewmay be revised to meet current compliance requirements. Procedure Date: 05/01/2022 11:29:[address] [place] [id number] Tina Blum MD GI PROCEDURE ORDERAB LES Final Result * Pap Smear (11/14/2021 12:00 AM EDT) 11/14/2021 11/15/2021 9:4 5 AM EDT Narrative SEE NARRATIVE - 11/21/2021 3:20 PM EDT [address] [address] Paper Machine Backtender: Angeles Whitehead MD PAYROLL TECHNICIAN Cytology Report FINAL DIAGNOSIS A. PAP SMEAR (SUREPATH) CE: SPECIMEN ADEQUACY: Satisfactory for evaluation; transformation zone present. INTERPRETATION: NEGATIVE FOR INTRAEPITHELIAL LESION OR MALIGNANCY. Electronically Signed Out By: SIA Quesada(ASCP) The Pap test is a screening test primarily for squamous cancers and precursors and has associated false-negative and false-positive results. New technologies such as liquid-based preparations may decrease but will not eliminate all false-negative results. Regular sampling and follow-up of unexplained clinical signs and symptoms are recommended to minimize false negative results. PROCEDURES/ADDENDA HPV Testing (Requested) Ordered Date: 11/15/2021 A. PAP SMEAR (SUREPATH) CE: Human Papilloma Virus Test Negative for high-risk human papillomavirus types 16, 18, 45 and the Other high risk probe set (Includes 31, 33, 35, 39, 51, 52, 56, 58, 59, 66, 68) by MobiPixie Onclarity HR-HPV analysis. Clinical correlation is advised. This HPV test was performed at [facility], [address] [place] [address]. This test has been FDA approved for SurePath cervical cytology specimens. The accuracy and precision of this test for all other specimen sources has been verified in the Cytopathology Laboratory of the [facility] and has not been cleared or approved by the U.S. Food and Drug Administration. Clinical correlation is advised. CLINICAL HISTORY Date of Last Menstrual Period: Not Provided Menstrual History: Post Menopausal Other Clinical Conditions: Screening Pap SPECIMEN SOURCE A: PAP SMEAR (SUREPATH) CE Patient Name: ARIELLE VAIL : 1965 (Age: 56) Sex: F Institution: [facility] Location: [facility] Date of Collection: 11/14/2021 Date of Reported: 11/21/2021 15:20 Results to: Tiffany Escobedo MD us Tiffany Escobedo MD CYTOLOGY ORDERABLES Final Res ult Performing Organization Address City/[facility]/ZIP Co de Phone Number SEE NARRATIVE * Hepatitis C antibody, qualitative (10/21/2021 2:30 PM EDT) HCV NON-REACTIV E NON-REACTI VE [facility] Blood 10/21/2021 2:30 PM EDT 10/21/2021 2:37 PM EDT us Tina Blum MD LAB BLOOD ORDERABLES Final Result Performing Organization Address [facility] Co de Phone Number [address] [address] from Last 3 Months or Most Recently Relevant to Health Maintenance [place] [address] [address] [address] [place] [address] [facility] Care Teams E Commerce Merchandising Coordinator Relationship Specialty Start Date End Date Yari Ryan MD [address] [address] [email or web address] PCP - General Family Medicine 09/05/24 Yari Ryan MD [address] [address] [email or web address] Insurance Assigned Provider 03/21/25 Additional Source Comments The information contained in this document represents components of the legal health record. It is not the complete legal health record.[facility]
--- OUTSIDE RECORDS SUMMARY | 2025-03-22 14:23 | XMS_ITS | Encounter Summary ---
Author Organization [facility] Address [address] [facility] [address] [place] [address] Phone Care Team Providers Care Lead Man Over All Dies In Pattern Shop Name Role Phone Terri Garcia MD Primary Care Provider Tina Epps MD Primary Care Provid er Yana Reeves MD Primary Care Provider Mila Huerta KEY ATTENDANT Primary Care Provider Yana Reeves MD Unavailable [phone] Jacquelyn Reeves OUTREACH DIRECTOR Primary Care Provider Yari Ryan MD Primary Care Provider [phone] Yari Ryan MD Unavailable Encounter Details Date Type Department Care Team (Late st Contact Info) Description 06/27/2018 Procedure Pass OR Admitting Dept - Virtual Department [address] [place] [id number] Social History Tobacco Use Types Packs/Day Years Used Date Smoking Tobacco: Former Smokeless Tobacco: Never Comments:quit 24 yrs ago Alcohol Use Standard Drinks/Week Comments No 0 (1 standard drink = 0.6 oz pur e alcohol) Comments No Sex and Gender Information Value Date Recorded Sex Assigned at Female 11/22/2021 2:43 PM EDT Legal Sex Female 2:16 PM EST Gender Identity Female 11/22/2021 2:43 PM EDT Sexual Orientation Straight 11/22/2021 2: 43 PM EDT documented as of this encounter Plan of Treatment Not on file documented as of this encounter Visit Diagnoses Not on filedocumented in this encounter Care Teams Lead Man Over All Dies In Pattern Shop Relationship Specialty Start Date End Date Terri Garcia MD [address] [place] [address] PCP - General Pediatrics 06/20/18 10/20/21 Tina Blum MD [address] [address] [email or web address] PCP - General Family Medicine 10/21/21 07/20/22 Yana Reeves MD [address] [place] [address] [email or web address] PCP - General Internal Medicine 07/21/22 03/26/23 Mila Huerta NP [address] [place] [id number] PCP - General Family Medicine 03/27/23 09/19/23 Jacquelyn Reeves FNP [address] [place] [address] PCP - General Nurse Practitioner 09/20/23 09/04/24 Yari Ryan MD [address] [place] [address] PCP - General Family Medicine 09/05/24 Yana Reeves MD [address] [place] [phone] Insurance Assigned Provider 05/26/23 08/25/23 Yari Ryan MD [address] [address] [email or web address] Insurance Assigned Provider 03/21/25 documented as of this encounter Additional Source Comments The information contained in this document represents components of the legal health record. It is not the complete legal health record.[facility]
--- OUTSIDE RECORDS SUMMARY | 2025-03-22 14:24 | XMS_ITS | Encounter Summary ---
Author Organization [facility] Address [address] [facility] [address] [place] [phone] Phone Care Team Providers Care Rerecording Mixer Name Role Phone Tina Blum MD Primary Care Provid er Yana Reeves MD Primary Care Provider Mila Huerta HOME ATTENDANT Primary Care Provider [phone] Yana Reeves MD Unavailable [phone] Jacquelyn Reeves MINILAB OPERATOR Primary Care Provider [phone] Yari Ryan MD Primary Care Provider [phone] Yari Ryan MD Unavailable Encounter Details Date Type Department Care Team (Late st Contact Info) Description 05/01/2022 Procedure Pass [facility] Admitting Dept Virtual Department [address] [place] [phone] Social History Tobacco Use Types Packs/Day Years Used Date Smoking Tobacco: Former Cigarettes 1 12 1 983 - 1994 Smokeless Tobacco: Never Comments:Former smoker, Quit 28 years ago. x11-12 years, 0.75-1 ppd. Alcohol Use Standard Drinks/Week Comments Not Currently 0 (1 standard drink = 0.6 oz pur e alcohol) Quit 1992 Child or Family Care Answer Date Record ed Do you have problems with on e of the following making it difficult for you to work, study, or receive health care? No 10/21/2021 Education Answer Date Recorded Are you interested in help w ith more adult education (for example, completing high school, GED, job training, learning the Haitian language, technical skills, or developing parenting skills)? No 10/21/2021 Food Answer Date Recorded Within the past 6 months we worried whether our food would run out before we got money to buy more. Never True 10/21/2021 Within the past 6 months the food we bought just didn't last and we didn't have enough money to get more. Never True Residential Stability Answer Date Recor ded What is your housing situation today? I have glen sing 10/21/2021 How many times have you move d in the past 12 months? Zero (I did not move) 10/21/2021 Paying for Meds Answer Date Recorded Do you have trouble paying for medicines? Yes 10/21/2021 Paying Utility Bills Answer Date Record ed Do you have trouble paying your heating or elect ricity bill? No 10/21/2021 Transportation Answer Date Recorded Has the lack of transportati on kept you from medical appointments or from getting medications? No 10/21/2021 Unemployment Answer Date Recorded Are you currently unemployed or working on a part-time or temporary basis, and looking for work? No 10/21/2021 Comments No Sex and Gender Information Value Date Recorded Sex Assigned at Female 11/22/2021 2:43 PM EDT Legal Sex Female 2:16 PM EST Gender Identity Female 11/22/2021 2:43 PM EDT Sexual Orientation Straight 11/22/2021 2: 43 PM EDT documented as of this encounter Plan of Treatment Not on file documented as of this encounter Visit Diagnoses Not on filedocumented in this encounter Additional Health Concerns Assessment Noted Time PHQ-2 Depression Total Score: 0 02/25/20 1:48 PM EDT documented as of this encounter Care Teams Rerecording Mixer Relationship Specialty Start Date End Date Tina Blum MD [address] [place] [phone] [email or web address] PCP - General Family Medicine 10/21/21 07/20/22 Yana Reeves MD [address] [place] [phone] PCP - General Internal Medicine 07/21/22 03/26/23 Mila Huerta, NOEL [address] [place] [id number] PCP - General Family Medicine 03/27/23 09/19/23 Jacquelyn Reeves [facility] [address] [place] [phone] PCP - General Nurse Practitioner 09/20/23 09/04/24 Yari Ryan MD [address] [place] [phone] PCP - General Family Medicine 09/05/24 Yana Reeves MD [address] [place] [phone] Insurance Assigned Provider 05/26/23 08/25/23 Yari Ryan MD [address] [place] [phone] Insurance Assigned Provider 03/21/25 documented as of this encounter Additional Source Comments The information contained in this document represents components of the legal health record. It is not the complete legal health record.[facility]
== END 2025-03-22 14:20 | disposition home or self-care (01) ==
LOC: HO.MRI 14:19
PROVIDERS: PCP Family Medicine; Visit Provider Internal Medicine
DX: S93.401A Sprain of unspecified ligament of right ankle, initial encounter (principal)
CPT/HCPCS: 73721

== ENCOUNTER → 2025-03-22 14:35 | Outpatient (BNV) | payer OTHER, SELFPAY | PROVIDERS: PCP Family Medicine; Visit Provider Radiology Diagnostic Radiology | DX: S90.01XA Contusion of right ankle, initial encounter (principal); S93.491A Sprain of other ligament of right ankle, initial encounter; S86.311A Strain of muscle(s) and tendon(s) of peroneal muscle group at lower leg level, right leg, initial encounter | CPT/HCPCS: 73721 ==